=== PATIENT | female | born 1995 | race Caucasian/White ===

== ENCOUNTER 2017-09-03 11:51 | Emergency (ER) | payer MEDICAID ==
[~2017-09-03] VITALS: Ht 165.1 cm; Wt 85.7 kg
[2017-09-03] MEDS ORDERED: CEPH500C5 PO (13:18)
[2017-09-03 13:31] VITALS: BP 114/76
== END 2017-09-03 13:34 | disposition home or self-care (01) ==
LOC: ER 11:52
DX: O26.893 Other specified pregnancy related conditions, third trimester (principal); L03.115 Cellulitis of right lower limb; F17.200 Nicotine dependence, unspecified, uncomplicated; Z79.899 Other long term (current) drug therapy; Z3A.30 30 weeks gestation of pregnancy
CPT/HCPCS: 99283; A6449